=== PATIENT | female | born 1940 | race Hispanic/Latino ===

== ENCOUNTER 2022-07-17 12:07 | Emergency (ER) | payer OTHER ==
[2022-07-17 12:22] VITALS: BP 172/66
[2022-07-17] MEDS ORDERED: ACET-66 PO (14:25)
== END 2022-07-17 14:43 | disposition home or self-care (01) ==
LOC: EDH 12:07
DX: S13.8XXA Sprain of joints and ligaments of other parts of neck, initial encounter (principal); V89.2XXA Person injured in unspecified motor-vehicle accident, traffic, initial encounter; Y93.89 Activity, other specified; Y92.89 Other specified places as the place of occurrence of the external cause; Y99.8 Other external cause status
CPT/HCPCS: 70450; 72100; 72125

== ENCOUNTER → 2024-10-10 | Outpatient (CLI) | payer OTHER ==
[~2024-10-10] MED LIST: ACET-66 PO
--- NOTE | 2024-10-10 14:01 | HMCIMG ---
CT HEART SAVER PROMOTIONAL HISTORY: Calcium scoring COMPARISON: None TECHNIQUE: Computed tomography of the heart was performed with ECG gating and suspended respiration. Postprocessing was performed on a computer workstation to obtain diastolic phase images, determine calcium score and provide a quantitative assessment of extent of disease. This CT included only the heart. HeartSaver score is 340.1. Please see cardiac calcium score report. The available CT chest images show no acute finding. CT was performed with one or more following dose reduction techniques: automated exposure control, adjustment of the mA and kv according to patient's size, or use of a iterative reconstruction technique.
== END | disposition home or self-care (01) ==
LOC: RAH 13:13
PROVIDERS: ATTEND Internal Medicine Cardiovascular Disease
DX: Z13.6 Encounter for screening for cardiovascular disorders (principal)
CPT/HCPCS: 75571

== ENCOUNTER 2024-12-22 08:46 | Emergency (ER) | payer OTHER ==
[~2024-12-22] VITALS: Ht 152.4 cm; Wt 72.6 kg
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
[2024-12-22] MEDS: ibuPROFEN 600 MG TABLET PO ONE (10:16)
[2024-12-22] MEDS: HYDROcodone/APAP 5/325 1 TAB TABLET PO ONE (10:17)
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
[2024-12-22 10:57] VITALS: BP 145/70; PULSE 90; RESP 16; TEMP 98.3; O2SAT 98
== END 2024-12-22 11:02 | disposition home or self-care (01) ==
LOC: EDH 08:46
DX: S20.311A Abrasion of right front wall of thorax, initial encounter (principal); M79.18 Myalgia, other site; Z96.659 Presence of unspecified artificial knee joint; V89.2XXA Person injured in unspecified motor-vehicle accident, traffic, initial encounter; Y93.89 Activity, other specified; Y92.89 Other specified places as the place of occurrence of the external cause; Y99.8 Other external cause status
CPT/HCPCS: 70450; 71250; 72125; 73130; 73565; 74176; 99284; 73560